=== PATIENT | female | born 1935 | race Caucasian/White ===

== ENCOUNTER → 2018-05-19 | Outpatient (CLI) | payer MEDICARE, OTHER ==
[~2018-05-19] VITALS: Ht 172.7 cm; Wt 66.2 kg
[~2018-05-19] MED LIST: ADULT LOW DOSE81 MG PO; ALIGN4 MG PO; ALLOPURINOL 10100 M2 PO; ALLOPURINOL 10100 M3 PO; AMLACTIN1 EACH; ASPIR 8181 MG PO; ATACAND8 MG PO; CRESTOR5 MG PO; CYCLOBENZAPRINE10 MG PO; DICYCLOMINE HCL20 MG PO; DURAGESIC1 EACH; FLAGYL 250 MG250 MG PO; HYDROCODONE-AP1 EAC6 PO; INSULIN PUMP; IRON236 MG PO; IRON325 PO; LEVOXYL75 MCG PO; LIDODERM 5%1 PATC1 TOP; NIASPAN ER 101000 M1 PO; NOVOLOG100 UNIT/1 SQ; OMEPRAZOLE 20 M20 MG PO; PLAVIX 75 MG TA75 M1 PO; PLAVIX 75 MG TA75 MG PO; PROBIOTIC1 EAC1 PO; SULFASALAZINE500 M5 PO; TOPROL XL25 MG PO; VITAMIN D1000 UNI1 PO; VITAMIN D3400 UNIT PO; VITAMIN D35000 UNI1 PO
[2018-05-19 11:44] LABS: HEMATOCRIT 34.4 % (37.0-47.0); MCH 33.7 pg (26.0-34.0); MCHC 32.1 g/dL (28.0-37.0); MCV 105.1 fL (80.0-100.0); MPV 6.7 fl. (7.2-11.1); RBC 3.28 mil/uL (4.20-5.00); RDW-CV 21.5 % (10.5-14.5); WBC 7.8 thou/uL (4.0-11.0)
[2018-05-19 11:51] LABS: APTT 28.9 Seconds (25.0-31.3); INR 1.1
[2018-05-19 11:52] LABS: ANION GAP 8 mmol/L (7-16); BUN 37 mg/dL (7-18); CALCIUM 10.1 mg/dL (8.5-10.1); CHLORIDE 98 mmol/L (98-107); CO2 29 mmol/L (21-32); CREATININE 1.5 mg/dL (0.6-1.3); GLUCOSE 210 mg/dL (70-99); POTASSIUM 4.3 mmol/L (3.5-5.1); SODIUM 135 mmol/L (136-145)
[2018-05-19 11:55] VITALS: BP 137/63
[2018-05-19 11:57] LABS: ALBUMIN 4.4 g/dL (3.4-5.0); ALKALINE PHOSPHATASE 50 U/L (46-116); CHOLESTEROL 125 mg/dL (<200); HDL CHOLESTEROL 66 mg/dL (>40); LDL CHOLESTEROL 35 mg/dL (<100); SGOT 20 U/L (15-37); SGPT 24 U/L (30-65); TC:HDL 1.9 Ratio (Not establshd); TOTAL BILIRUBIN 1.3 mg/dL (<0.1-1.0); TOTAL PROTEIN 7.3 g/dL (6.4-8.2); TRIGLYCERIDE 120 mg/dL (<150); VLDL 24 mg/dL (<40)
[2018-05-19 11:59] LABS: SERUM ASSESSMENT Clear
--- NOTE | 2018-05-19 16:33 | EKG ---
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[facility] : 1935 Requested By: Ilan Hill Order Number: [id number] MD: Ilan Hill Measurements Intervals [place] Rate: 79 P: 66 TX: 261 QRS: 111 QRSD: 156 T: 41 QT: 428 QTc: 491 Interpretive Statements Sinus rhythm Prolonged [place] interval RBBB and LPFB Compared to ECG 02/15/2017 08:17:25 Left posterior fascicular block now present Atrial premature complex(es) no longer present Electronically Signed On 05-19-2018 16:33:12 ACTION FINISHER by Ilan Hill [email or web address] <ELECTRONICALLY SIGNED> By: Ilan Hill MD, [facility] 05/19/18 1633 1141 1141 Ilan Hill MD, [facility] /EPI
--- NOTE | 2018-06-05 15:14 | CARD ---
[address] [address] CARDIAC CATH REPORT Name: CHRIS RIVERS Room: [facility] TERRI Corcoran#: [id number] Admission: 05/19/18 Attend Phys: Ilan Hill MD, Discharge: Date of : 35 Report #: [id number] THIS REPORT FOR: //name// APPROVED REPORT Study performed: 05/19/2018 12:45:37 Patient Details The patient is a 82 year-old female Event Personnel Ilan Hill Criminology Teacher, Laura Hudson RN RN, Fabián Archibald, Skyla MonroyIS Scrub Procedures Performed Selective coronary arteritis, aortocoronary saphenous vein bypass graft study, HELMS graft study Indication Positive stress test, Aortic stenosis of severe magnitude Risk Factors Hypercholesterolemia, Hypertension, Diabetes Previous Procedures/Diagnoses Previous CABGPrevious PCI Procedure Narrative The patient was brought electively to the Cardiac Catheterization Laboratory and was prepped and draped in a sterile manner. The right femoral was infiltrated with 2% Lidocaine subcutaneous anesthesia. A [place] 6 FR sheath was inserted into the . Coronary angiography was performed using coronary diagnostic catheters. The right coronary system was accessed and visualized with a Diagnostic - JR4 catheter. The left coronary system was accessed and visualized with a Diagnostic - JL4 catheter. The patient tolerated the procedure well and there were no complications associated with the procedure. There was no hematoma. SVG INJECTED WITH A JR4 & AR1; flush filling of the [address] [place] [address] CARDIAC CATH REPORT Name: CHRIS RIVERS Room: [facility]#: [id number] Admission: 05/19/18 Attend Phys: Ilan Hill MD, Discharge: Date of : 35 Report #: [id number] HELMS graft with JR4 catheter Intraoperative Conscious Sedation Sedation start time: 1324 Case end Time: 1405 Fluoro Time: 11.2 minutes Dose: DAP 66504 cGycm2 605 mGy Contrast Type and Amount: Visipaque 125 ml Coronary Angiography The patient's coronary anatomy is left dominant. [place] Artery Percent Stenosis 1 widely patent saphenous vein graft to a diagonal and the distal circumflex #2 widely patent HELMS graft to the LAD with 40% distal LAD narrowing Diagnostic Cath Left Main 0% narrowing LAD 100% proximal occlusion Circumflex Widely patent proximal and mid vessel stents with 30% proximal mid and distal narrowings Right Coronary 100% proximal occlusion Hemodynamics The aortic pressure is 153/50 mmHg with a mean of 82 mmHg. Conclusion #1 significant coronary disease characterized by following: A 100% proximal LAD occlusion B 100% occlusion of the proximal portion of the nondominant right coronary artery C 30% proximal mid and distal circumflex narrowings with widely patent proximal and mid circumflex stents #2 graft study characterized by the following: A widely patent saphenous vein graft to a diagonal and the distal circumflex B widely patent HELMS graft to the mid LAD with 40% distal LAD narrowing [address] [place] [address] CARDIAC CATH REPORT Name: RIVERSCHRIS DENISSE Room: [facility].#: [id number] Admission: 05/19/18 Attend Phys: Ilan Hill MD, Discharge: Date of : 35 Report #: [id number] C total occlusion of the other previously constructed vein graft Recommendations Cardiac Risk Reduction Program Aggressive Medical Therapy Diagnostic Cath Approved by: Ilan Hill MD Date/Time: 05/19/2018 15:42:36 <ELECTRONICALLY SIGNED> By: Ilan Hill MD, FAC 05/19/18 1544 1544 1544Ilan Hill MD, FAC /INF
== END | disposition home or self-care (01) ==
LOC: M.CL 10:59
PROVIDERS: Internal Medicine
DX: I25.10 Atherosclerotic heart disease of native coronary artery without angina pectoris (principal); I25.799 Atherosclerosis of other coronary artery bypass graft(s) with unspecified angina pectoris; I10 Essential (primary) hypertension; I25.2 Old myocardial infarction; E11.40 Type 2 diabetes mellitus with diabetic neuropathy, unspecified; E78.00 Pure hypercholesterolemia, unspecified; E03.9 Hypothyroidism, unspecified; I73.9 Peripheral vascular disease, unspecified; E78.5 Hyperlipidemia, unspecified; M81.0 Age-related osteoporosis without current pathological fracture; Z88.8 Allergy status to other drugs, medicaments and biological substances; Z79.4 Long term (current) use of insulin; Z79.82 Long term (current) use of aspirin; Z87.19 Personal history of other diseases of the digestive system; Z79.899 Other long term (current) drug therapy; Z79.891 Long term (current) use of opiate analgesic; Z98.890 Other specified postprocedural states; Z79.01 Long term (current) use of anticoagulants